=== PATIENT | female | born 2000 | race Caucasian/White ===

== ENCOUNTER 2023-03-29 14:49 | Outpatient (CLI) | payer OTHER, SELFPAY | END 2023-03-29 14:50 | disposition home or self-care (01) | PROVIDERS: Visit Provider Nurse Practitioner Family | DX: R21 Rash and other nonspecific skin eruption (principal); M25.40 Effusion, unspecified joint | CPT/HCPCS: 80053; 86039; 86140; 86431; 86618 ==